=== PATIENT | female | born 1965 | race Caucasian/White ===

== ENCOUNTER 2024-03-15 09:42 | Emergency (ER) | payer SELFPAY ==
[~2024-03-15] VITALS: Ht 152.4 cm; Wt 77.0 kg
[2024-03-15 09:53] VITALS: O2SAT 100
[2024-03-15 10:27] LABS: BASOPHILS % 0.4 % (0.0-2.0); EOSINOPHILS % 1.4 % (0.0-5.0); HEMATOCRIT. 43.1 % (36.0-48.0); HEMOGLOBIN. 14.5 g/dL (12.0-16.0); MEAN CORPUSCULAR HGB CONC 33.7 g/dL (31.0-37.0); MEAN CORPUSCULAR VOLUME 97.9 fL (81.0-99.0); MEAN PLATELET VOLUME 8.9 fl (7.4-10.4); MONOCYTES % 5.9 % (2.0-8.0); NEUTROPHILS % 73.3 % (40.0-76.0); PLATELET 242 x1000/uL (130-400); RED CELL DISTRIBUTION WIDTH 13.9 % (11.6-14.6); WHITE BLOOD COUNT 9.2 x1000/uL (4.5-11.0)
[2024-03-15 10:52] LABS: CHLORIDE 108 mEq/L (98-107); POTASSIUM 3.8 mEq/L (3.5-5.1); SODIUM 139 mEq/L (136-145)
[2024-03-15 10:53] LABS: CARBON DIOXIDE 26 mEq/L (21-32)
[2024-03-15 10:54] LABS: CALCIUM 9.1 mg/dL (8.7-10.4)
[2024-03-15 10:58] LABS: CREATININE 0.8 mg/dL (0.6-1.0); GLUCOSE 101 mg/dL (70-105)
[2024-03-15 10:59] LABS: UREA NITROGEN BLOOD 13 mg/dL (9-23)
[2024-03-15 11:00] LABS: ALANINE AMINOTRANSFERASE 40 IU/L (10-49); ALBUMIN 4.6 g/dL (3.2-4.8); ASPARTATE AMINOTRANSFERASE 42 IU/L (<34)
[2024-03-15 11:01] LABS: BILIRUBIN DIRECT 0.1 mg/dL (<=3.0); BILIRUBIN TOTAL 0.5 mg/dL (0.1-1.0); PROTEIN TOTAL 8.3 g/dL (6.0-8.3)
[2024-03-15 11:07] LABS: TROPONIN I HIGH SENSITIVITY < 4 ng/L (3.0-34)
[2024-03-15] MEDS: ACETAMINOPHEN 325MG TABLET PO ONE (11:45)
[2024-03-15] MEDS: IBUPROFEN 400MG TABLET PO ONE (11:56)
[2024-03-15 14:00] VITALS: BP 139/86; PULSE 75; RESP 17; TEMP 98.1
== END 2024-03-15 14:22 | disposition home or self-care (01) ==
LOC: ER 09:42
DX: I10 Essential (primary) hypertension (principal); R51.9 Headache, unspecified
CPT/HCPCS: 36415; 80048; 80076; 84484; 85025; 93005; 99284